=== PATIENT | female | born 1965 | race Caucasian/White ===

== ENCOUNTER 2018-08-22 20:06 | Emergency (ER) | payer BC ==
[2018-08-22] MEDS ORDERED: Acetaminophen/HYDROcodone 325-5 MG Tab PO ONE (20:07)
[2018-08-22] MEDS ORDERED: Diphtheria,Pertussis(Acell),Tetanus Vaccine 0.5 ML Syringe IM ONE (20:26)
[2018-08-22] MEDS ORDERED: Lidocaine 1% 20 ML MDV INJECT ONE (20:38)
[2018-08-22] MEDS ORDERED: Bacitracin/Neomycin/Polymyxin B Oint 28.4 GM Tube TOP ONE (21:28)
[2018-08-22] MEDS ORDERED: Take Home: Acetaminophen/HYDROcodone 325-5 MG, 2 Tab Pack PO ONE (21:33)
--- NOTE | 2018-08-22 21:35 | EDM.PDOC ---
ED HPI GENERAL MEDICAL PROBLEM - General Chief Complaint: Laceration Stated Complaint: laceration Time Seen by Provider: 08/22/18 20:30 Source of Information: Reports: Patient History Limitations: Reports: No Limitations - History of Present Illness INITIAL COMMENTS - FREE TEXT/NARRATIVE: Vanna Santiago is a 52 year old female who presents to the ED with c/o a laceration to her right thumb. She reports she was doing woodwork using a table saw when she got her thumb in the saw. Reports her thumb is numb. Does have full ROM. Onset: Today, Sudden Onset Date: 08/22/18 Onset Time: 20:00 Duration: Constant Location: Reports: Upper Extremity, Right Severity: Moderate Associated Symptoms: Reports: No Other Symptoms Right Finger-Thumb Pain Score (Numeric/FACES): 6 - Related Data Allergies Allergy/AdvReac Type Severity Reaction Status Date / Time No Known Allergies Allergy Verified 08/22/18 20:17 Home Meds: Home Meds Butalb/Acetaminophen/Caffeine [[id number] 50-300-40] 1 tab PO ASDIRECTED 08/22/18 [History] Mirtazapine 15 mg PO BEDTIME 08/22/18 [History] Pantoprazole Sodium 40 mg PO DAILY 08/22/18 [History] Past Medical History HEENT History: Reports: Cataract - Past Surgical History HEENT Surgical History: Reports: Eye Surgery Female Surgical History: Reports: D&C, Hysterectomy Social & Family History - Tobacco Use Smoking Status *Q: Never Smoker - Caffeine Use Caffeine Use: Reports: Coffee, Soda - Recreational Drug Use Recreational Drug Use: No ED ROS GENERAL - Review of Systems Review Of Systems: ROS reveals no pertinent complaints other than HPI. ED EXAM, SKIN/RASH Exam: See Below Exam Limited By: No Limitations General Appearance: Alert, WD/WN, No Apparent Distress Peripheral Pulses: 2+: Radial (R) Extremities: Normal Range of Motion, Other (Full ROM to distal phalynx of right thumb) Skin: Wound/Incision (3.5 cm laceraton to distal phalynx of right thumb, bleeding controlled) Location, Skin: Other (right distal thumb) ED SKIN PROCEDURES - Laceration/Wound Repair Right Distal Digit - 1st (Thumb) Lac/Wound length In cm: 3.5 Appearance: Subcutaneous, Irregular, Clean Distal NVT: Neuro & Vascular Intact, No Tendon Injury Anesthetic Type: Digital Local Anesthesia - Lidocaine (Xylocaine): 1% Plain Local Anesthetic Volume: 5cc Skin Prep: Providone-Iodine (Betadine), Other (Wound cleanser) Exploration/Debridement/Repair: Wound Explored, Minimal Debridement, No Foreign Material Found, Wound Margins Revised Closed with: Sutures Suture Size: 4-0 # of Sutures: 7 Suture Type: Nylon, Interrupted, Simple Sterile Dressing Applied: Nurse Tetanus Status Addressed: Yes Complications: No Progress/Comments: After verbal consent obtained, laceration was closed without difficulty. Patient tolerated well. Bacitracin and dressing applied. Course - Vital Signs Last Recorded V/S: Last Vital Signs Temp 98.2 F 08/22/18 20:07 Pulse 87 08/22/18 20:07 Resp 16 08/22/18 20:07 BP 136/83 08/22/18 20:07 Pulse Ox 98 08/22/18 20:07 - Orders/Labs/Meds Orders: Active Orders 24 hr Category Date Time Status Vaccines to be Administered [RC] PER UNIT ROUTINE Care 08/22/18 20:26 Active Meds: Medications Discontinued Medications Generic Name Dose Route Start Last Admin Trade Name Giuseppeq PRN Reason Stop Dose Admin Hydrocodone Bitart/Acetaminophen 3 packet 08/22/18 21:33 08/22/18 21:43 Take Home: Acetaminophen/Hydrocod, 2 Tab Pack PO 08/22/18 21:34 3 packet ONETIME ONE Administration Diphtheria/Tetanus/Acell Pertussis 0.5 ml 08/22/18 20:26 08/22/18 20:50 Adacel IM 08/22/18 20:27 0.5 ml .ONCE ONE Administration Lidocaine HCl 20 ml 08/22/18 20:38 08/22/18 20:50 Xylocaine 1% INJECT 08/22/18 20:39 20 ml ONETIME ONE Administration Neomycin/Polymyxin/Bacitracin 1 gm 08/22/18 21:28 08/22/18 21:34 Triple Antibiotic Oint TOP 08/22/18 21:29 1 applic ONETIME ONE Administration Departure - Departure Time of Disposition: 21:30 Disposition: Home, Self-Care 01 Condition: Good Clinical Impression: Laceration of thumb Qualifiers: Encounter type: initial encounter Damage to nail status: without damage Foreign body presence: without foreign body Laterality: right Qualified Code(s) : S61.011A - Laceration without foreign body of right thumb without damage to nail, initial encounter - Discharge Information *PRESCRIPTION DRUG MONITORING PROGRAM REVIEWED*: Not Applicable *COPY OF PRESCRIPTION DRUG MONITORING REPORT IN PATIENT DAMIAN: Not Applicable Instructions: Stitches, [place], or Adhesive Wound Closure, [id number] Referrals: Vanna Wallace PA-C [Primary Care Provider] - Forms: ED Department Discharge Additional Instructions: 1) [place] 1 tab every 4 hours as needed for pain. May use Tylenol or ibuprofen for less severe pain. 2) Keep area clean and dry. Keep covered when working outdoors. 3) Apply Neosporin daily 4) Monitor for s/s of infection (redness, drainage, warmth) 5) Follow up for suture removal in 10 days (09/01/2018) - My Orders Last 24 Hours: My Active Orders 08/22/18 20:26 Vaccines to be Administered [RC] PER UNIT ROUTINE - Assessment/Plan Last 24 Hours: My Active Orders 08/22/18 20:26 Vaccines to be Administered [RC] PER UNIT ROUTINE
== END 2018-08-22 21:50 | disposition home or self-care (01) ==
LOC: CC.ED 20:06
DX: S61.011A Laceration without foreign body of right thumb without damage to nail, initial encounter (principal); Z79.899 Other long term (current) drug therapy; W31.2XXA Contact with powered woodworking and forming machines, initial encounter
CPT/HCPCS: 12002; 90471; 90715; 99282; A9270-GY; J2001

== ENCOUNTER → 2021-07-13 | Day surgery (SDC) | payer BC ==
[~2021-07-13] MED LIST: Flumazenil 0.1 MG/ML 10 ML MDV ONE; Ketamine 200 MG/20 ML MDV ONE; Lactated Ringers 1,000 ML IV SCH; Midazolam 1 MG/ML 2 ML SDV ONE; Propofol 200 MG/20 ML SDV ONE; fentaNYL 100 MCG/2 ML SDV ONE
== END ==
LOC: CC.SDS 10:23
PROVIDERS: ATTEND Family Medicine
DX: Z12.11 Encounter for screening for malignant neoplasm of colon (principal); K57.30 Diverticulosis of large intestine without perforation or abscess without bleeding; F41.9 Anxiety disorder, unspecified; F32.A Depression, unspecified; K21.9 Gastro-esophageal reflux disease without esophagitis; E78.5 Hyperlipidemia, unspecified; E55.9 Vitamin D deficiency, unspecified; J32.9 Chronic sinusitis, unspecified; C44.729 Squamous cell carcinoma of skin of left lower limb, including hip; Z79.82 Long term (current) use of aspirin; Z80.0 Family history of malignant neoplasm of digestive organs; Z79.899 Other long term (current) drug therapy; Z98.890 Other specified postprocedural states
CPT/HCPCS: 00812; J2250; J2704; J3010; J7120